=== PATIENT | male | born 1950 | race Caucasian/White ===

== ENCOUNTER 2021-09-09 17:41 | Emergency (ER) | payer OTHER ==
[2021-09-09] MEDS ORDERED: Lorazepam 2 MG/ML VIAL ONE (18:42)
[2021-09-09] MEDS ORDERED: levETIRAcetam in NS 100 ML ONE (18:42)
[2021-09-09 18:55] LABS: #Basophils 0.1 10x3/uL (0.0-0.2); #Eosinphils 0.1 10x3/uL (0.0-0.5); #Monocytes 0.6 10x3/uL (0.0-1.1); #Neutrophils 8.1 10x3/uL (1.5-8.4); %Basophils 0.6 % (0.0-2.0); %Eosinophils 0.5 % (0.0-6.0); %Lymphocytes 11.5 % (18.0-47.0); %Monocytes 5.7 % (0.0-10.0); %Neutrophils 81.2 % (40.0-75.0); Hemoglobin 13.6 g/dL (13.5-17.5); Mean Corpuscular HGB CONC 33.6 g/dL (32.0-36.0); Mean Corpuscular Hemoglobin 29.1 pg (27.0-33.0); Mean Corpuscular Volume 86.7 fl (81.2-95.1); Mean Platelet Volume 9.5 fl (7.4-10.4); Platelet Count 258 10x3/uL (150-450); RBC Distribution Width 14.3 % (11.5-14.5); Red Blood Cell (RBC) Count 4.67 10x6/uL (4.32-5.72); White Blood Cell (WBC) Count 9.9 10x3/uL (3.5-10.5)
[2021-09-09 19:07] LABS: ALT (SGPT) 14 U/L (8-55); AST (SGOT) 16 U/L (5-34); Alkaline Phosphatase 79 U/L (40-110); Anion Gap 14 mmol/L (10-20); BUN (Urea Nitrogen) 10 mg/dL (8.4-25.7); Bilirubin, Total 0.4 mg/dL (0.2-1.2); CK (CPK) 66 U/L (30-200); Calc. Creatinine Clearance 0 mL/min (70-130); Calcium 8.7 mg/dL (7.8-10.44); Carbon Dioxide 19 mmol/L (23-31); Chloride 102 mmol/L (98-107); Globulin 2.5 g/dL (2.4-3.5); Glucose 96 mg/dL (80-115); Protein, Total 6.5 g/dL (5.8-8.1); Sodium 131 mmol/L (136-145)
[2021-09-09] MEDS ORDERED: Dexamethasone 10 MG/ML VIAL ONE (19:47)
[2021-09-09 20:13] LABS: Bilirubin Neg (Negative); Blood, Urine 10 (Negative); Clarity Slightly Cloudy (Clear); Glucose, Urine (Dipstick) Normal (Negative); Ketone, Urine Negative (Negative); Leukocyte 25 (Negative); Nitrite Positive (Negative); Protein, Urine (Dipstick) Negative (Neg-Trace); Urobilinogen Normal mg/dL (Less than 2)
[2021-09-09 20:27] LABS: Squamous Epithelial 0-3 HPF (0-3)
[2021-09-09 20:28] LABS: Bacteria/HPF 4+ HPF (None Seen); Mucous/LPF 2+ LPF (<2+); RBC/HPF 0-3 HPF (0-3); Triple Phosphate Crystal 1+ HPF (None Seen); WBC/HPF 0-3 HPF (0-3)
[2021-09-10] MEDS ORDERED: Dexamethasone 4 mg/ml Vial ONE ×3 (01:13→14:14)
[2021-09-10] MEDS ORDERED: levETIRAcetam 500 MG TAB ONE ×2 (05:27→17:36)
[2021-09-10] MEDS ORDERED: traZODone HCl 50 MG TAB ONE (14:34)
== END 2021-09-09 21:16 | disposition admitted as inpatient to this hospital (09) ==
LOC: CSHERS 17:41
DX: G93.9 Disorder of brain, unspecified (principal); R56.9 Unspecified convulsions; I10 Essential (primary) hypertension; E78.5 Hyperlipidemia, unspecified; F17.210 Nicotine dependence, cigarettes, uncomplicated; Z79.82 Long term (current) use of aspirin; Z79.899 Other long term (current) drug therapy
CPT/HCPCS: 70450; 80053; 81003; 81015; 82550; 85025; 96374; 96375; 96376; J1100; J1953; J2060

== ENCOUNTER 2022-02-27 22:49 | Emergency (ER) | payer OTHER ==
[2022-02-27] MEDS ORDERED: Ondansetron PF 4 MG/2 ML Vial ONE (23:25)
[2022-02-28 00:28] LABS: Bilirubin Neg (Negative); Blood, Urine 10 (Negative); Clarity Cloudy (Clear); Glucose, Urine (Dipstick) Normal (Negative); Ketone, Urine Negative (Negative); Leukocyte 500 (Negative); Nitrite Positive (Negative); Protein, Urine (Dipstick) 15 mg/dl (Neg-Trace); Specific Gravity, Urine 1.015 (1.002-1.036); Urobilinogen Normal mg/dL (Less than 2)
[2022-02-28 00:40] LABS: RBC/HPF 0-3 HPF (0-3)
[2022-02-28 00:42] LABS: Bacteria/HPF 2+ HPF (None Seen); Mucous/LPF 1+ LPF (<2+); Squamous Epithelial 0-3 HPF (0-3); Triple Phosphate Crystal 2+ HPF (None Seen)
[2022-02-28 00:43] LABS: ALT (SGPT) 29 U/L (8-55); AST (SGOT) 25 U/L (5-34); Alkaline Phosphatase 92 U/L (40-110); Anion Gap 15 mmol/L (10-20); BUN (Urea Nitrogen) 11 mg/dL (8.4-25.7); Bilirubin, Total 0.4 mg/dL (0.2-1.2); Calc. Creatinine Clearance 0 mL/min (70-130); Calcium 9.5 mg/dL (7.8-10.44); Carbon Dioxide 21 mmol/L (23-31); Chloride 98 mmol/L (98-107); Globulin 2.2 g/dL (2.4-3.5); Glucose 146 mg/dL (83-110); Lipase 27 U/L (8-78); Potassium 4.1 mmol/L (3.5-5.1); Protein, Total 6.2 g/dL (5.8-8.1); Sodium 130 mmol/L (136-145)
[2022-02-28] MEDS ORDERED: cefTRIAXone\\ROCEPHIN 1 GM VIAL ONE (01:00)
[2022-02-28 01:01] LABS: #Eosinphils 0.1 10x3/uL (0.0-0.5); #Monocytes 0.4 10x3/uL (0.0-1.1); #Neutrophils 8.5 10x3/uL (1.5-8.4); %Basophils 0.4 % (0.0-2.0); %Eosinophils 0.8 % (0.0-6.0); %Lymphocytes 2.9 % (18.0-47.0); %Monocytes 3.8 % (0.0-10.0); %Neutrophils 91.8 % (40.0-75.0); Mean Corpuscular Hemoglobin 29.7 pg (27.0-33.0); Mean Corpuscular Volume 84.9 fl (81.2-95.1); Mean Platelet Volume 10.1 fl (7.4-10.4); Platelet Count 221 10x3/uL (150-450); RBC Distribution Width 14.3 % (11.5-14.5); Red Blood Cell (RBC) Count 4.37 10x6/uL (4.32-5.72); White Blood Cell (WBC) Count 9.3 10x3/uL (3.5-10.5)
== END 2022-02-28 01:56 | disposition home or self-care (01) ==
LOC: CSHERS 22:49
DX: N39.0 Urinary tract infection, site not specified (principal); C71.9 Malignant neoplasm of brain, unspecified; R11.2 Nausea with vomiting, unspecified; R55 Syncope and collapse; I10 Essential (primary) hypertension; E78.5 Hyperlipidemia, unspecified; F17.210 Nicotine dependence, cigarettes, uncomplicated; Z79.899 Other long term (current) drug therapy; Z79.82 Long term (current) use of aspirin
CPT/HCPCS: 71045; 80053; 81003; 81015; 83690; 84484; 85025; 93005; 96361; 96374; 96375; J0696; J2405

== ENCOUNTER 2022-05-05 09:11 | Outpatient (CLI) | payer OTHER ==
[2022-05-05] MEDS ORDERED: Magnevist 469MG/ML 20 ML VIAL ONE (15:50)
== END 2022-05-05 09:12 | disposition home or self-care (01) ==
LOC: CSHMRI 09:11
PROVIDERS: ATTEND Radiology Radiation Oncology
DX: C71.9 Malignant neoplasm of brain, unspecified (principal); Z98.890 Other specified postprocedural states; Z92.3 Personal history of irradiation; Z92.21 Personal history of antineoplastic chemotherapy; C71.0 Malignant neoplasm of cerebrum, except lobes and ventricles
CPT/HCPCS: 70553; A9579

== ENCOUNTER 2022-05-09 15:24 | Emergency (ER) | payer OTHER, MEDICARE ==
[~2022-05-09 15:24] MED LIST: Iopamidol 370 76% 100 ML VIAL ONE
[2022-05-09 16:04] LABS: #Monocytes 0.3 10x3/uL (0.0-1.1); #Neutrophils 5.8 10x3/uL (1.5-8.4); %Basophils 0.2 % (0.0-2.0); %Eosinophils 0.3 % (0.0-6.0); %Lymphocytes 3.8 % (18.0-47.0); %Monocytes 5.2 % (0.0-10.0); %Neutrophils 90.2 % (40.0-75.0); Hemoglobin 13.2 g/dL (13.5-17.5); Mean Corpuscular HGB CONC 35.7 g/dL (32.0-36.0); Mean Corpuscular Hemoglobin 31.8 pg (27.0-33.0); Mean Corpuscular Volume 89.2 fl (81.2-95.1); Mean Platelet Volume 10.3 fl (7.4-10.4); Platelet Count 157 10x3/uL (150-450); RBC Distribution Width 17.2 % (11.5-14.5); Red Blood Cell (RBC) Count 4.15 10x6/uL (4.32-5.72); White Blood Cell (WBC) Count 6.4 10x3/uL (3.5-10.5)
[2022-05-09 16:17] LABS: Bilirubin Neg (Negative); Blood, Urine 50 (Negative); Clarity Cloudy (Clear); Glucose, Urine (Dipstick) Normal (Negative); Ketone, Urine Negative (Negative); Leukocyte 500 (Negative); Nitrite Positive (Negative); Protein, Urine (Dipstick) 100 mg/dl (Neg-Trace); Specific Gravity, Urine 1.015 (1.002-1.036); Urobilinogen Normal mg/dL (Less than 2)
[2022-05-09 16:19] LABS: ALT (SGPT) 25 U/L (8-55); AST (SGOT) 21 U/L (5-34); Albumin 4.3 g/dL (3.4-4.8); Alkaline Phosphatase 76 U/L (40-110); Anion Gap 13 mmol/L (10-20); BUN (Urea Nitrogen) 12 mg/dL (8.4-25.7); Bilirubin, Total 0.5 mg/dL (0.2-1.2); CK (CPK) 33 U/L (30-200); Calc. Creatinine Clearance 0 mL/min (70-130); Calcium 9.8 mg/dL (7.8-10.44); Carbon Dioxide 22 mmol/L (23-31); Chloride 100 mmol/L (98-107); Estimated GFR 66; Globulin 2.2 g/dL (2.4-3.5); Glucose 137 mg/dL (83-110); Protein, Total 6.5 g/dL (5.8-8.1); Sodium 131 mmol/L (136-145)
[2022-05-09 16:39] LABS: Bacteria/HPF 4+ HPF (None Seen); RBC/HPF 0-3 HPF (0-3); Squamous Epithelial 0-3 HPF (0-3)
[2022-05-09 16:40] LABS: Triple Phosphate Crystal 1+ HPF (None Seen)
[2022-05-09] MEDS ORDERED: cefTRIAXone\\ROCEPHIN 1 GM VIAL ONE (16:52)
[2022-05-09 17:06] LABS: PTT 25.6 sec (22.0-33.0); Prothrombin Time 10.6 sec (9.5-12.1)
[2022-05-09 18:52] LABS: SARS-CoV-2 NAA Rapid Test Not Detected (NotDetected)
[2022-05-09] MEDS ORDERED: Aspirin Chewable 81 MG TAB ONE (19:43)
[2022-05-09 21:19] LABS: Lactic Acid 1.8 mmol/L (0.5-2.2)
== END 2022-05-09 23:38 | disposition short-term general hospital (02) ==
LOC: CSHERS 15:24
DX: C71.9 Malignant neoplasm of brain, unspecified (principal); E78.5 Hyperlipidemia, unspecified; I10 Essential (primary) hypertension; F17.210 Nicotine dependence, cigarettes, uncomplicated; Z79.899 Other long term (current) drug therapy
CPT/HCPCS: 36415; 70450; 71045; 71275; 80053; 81003; 81015; 82550; 83605; 84484; 85025; 85610; 85730; 87040; 87077; 87086; 87149; 93005; 96365; J0696; Q9967; U0002

== ENCOUNTER 2022-05-31 09:51 | Outpatient (CLI) | payer OTHER ==
[~2022-05-31 09:51] MED LIST changes: -Iopamidol 370 76% 100 ML VIAL ONE; +Magnevist 469MG/ML 20 ML VIAL ONE
== END 2022-05-31 09:52 | disposition home or self-care (01) ==
LOC: CSHMRI 09:51
PROVIDERS: ATTEND Neurological Surgery
DX: C71.9 Malignant neoplasm of brain, unspecified (principal); G93.6 Cerebral edema
CPT/HCPCS: 70553; A9579

== ENCOUNTER 2022-08-05 14:34 | Outpatient (CLI) | payer OTHER | END 2022-08-05 14:35 | disposition home or self-care (01) | LOC: CSHMRI 14:34 | PROVIDERS: ATTEND Internal Medicine Hematology & Oncology | DX: C71.9 Malignant neoplasm of brain, unspecified (principal); C71.0 Malignant neoplasm of cerebrum, except lobes and ventricles; G93.6 Cerebral edema | CPT/HCPCS: 70553 ==

== ENCOUNTER 2022-09-27 05:37 | Day surgery (SDC) | payer OTHER ==
[2022-09-23 15:20] VITALS: BMI 22.0
[2022-09-27] MEDS ORDERED: Bupivacaine PF 0.5% 30 ML VIAL ONE (06:36)
[2022-09-27] MEDS ORDERED: EPINEPHrine 1 MG/ML AMP ONE (06:36)
[2022-09-27] MEDS ORDERED: CEFAZOLIN 2 GM VIAL ONE (07:01)
[2022-09-27] MEDS ORDERED: Dexamethasone 4 mg/ml Vial ONE (07:06)
[2022-09-27] MEDS ORDERED: Ondansetron PF 4 MG/2 ML Vial ONE (07:06)
[2022-09-27] MEDS ORDERED: PROPOFOL 20 ML ONE (07:06)
[2022-09-27] MEDS ORDERED: Fentanyl 100 MCG/2 ML VIAL ONE (07:06)
[2022-09-27] MEDS ORDERED: Clindamycin/D5W 600 mg/50 ml Premix Bag ONE (07:11)
[2022-09-27] MEDS ORDERED: PHENYLEPHRINE-NS 100 MCG/ML 10 ML SYRINGE ONE (07:31)
[2022-09-27] MEDS ORDERED: HYDROcodone/Acetaminophen 5/325 mg Tablet PO PRN (08:14)
[2022-09-27] MEDS ORDERED: Acetaminophen 325 MG TAB PO PRN (08:14)
== END 2022-09-27 09:00 | disposition home or self-care (01) ==
LOC: CSHSDC 05:37
PROVIDERS: ATTEND Surgery
PROC: 02HV33Z Insertion of Infusion Device into Superior Vena Cava, Percutaneous Approach (ICD-10-PCS; principal; 2022-09-27)
PROC: B518ZZA Fluoroscopy of Superior Vena Cava, Guidance (ICD-10-PCS; principal; 2022-09-27)
DX: C71.9 Malignant neoplasm of brain, unspecified (principal); R29.898 Other symptoms and signs involving the musculoskeletal system; I10 Essential (primary) hypertension; E78.00 Pure hypercholesterolemia, unspecified; Z85.51 Personal history of malignant neoplasm of bladder; Z79.899 Other long term (current) drug therapy; Z88.8 Allergy status to other drugs, medicaments and biological substances; Z87.891 Personal history of nicotine dependence; Z98.890 Other specified postprocedural states
CPT/HCPCS: 71045; C1788; J0171; J1100; J1642; J2405; J2704; J3010; J3490; S0020

== ENCOUNTER 2022-10-13 11:32 | Emergency (ER) | payer OTHER ==
[2022-10-13 12:26] LABS: Bilirubin Neg (Negative); Blood, Urine 50 (Negative); Clarity Cloudy (Clear); Glucose, Urine (Dipstick) Normal (Negative); Ketone, Urine 5 mg/dL (Negative); Leukocyte 500 (Negative); Nitrite Positive (Negative); Protein, Urine (Dipstick) 100 mg/dl (Neg-Trace); Urobilinogen Normal mg/dL (Less than 2)
[2022-10-13 12:36] LABS: Bacteria/HPF 1+ HPF (None Seen); RBC/HPF 0-3 HPF (0-3)
[2022-10-13] MEDS ORDERED: Cefepime 2 GM VIAL ONE (12:57)
[2022-10-13 13:31] LABS: #Monocytes 0.6 10x3/uL (0.0-1.1); #Neutrophils 6.7 10x3/uL (1.5-8.4); %Basophils 0.3 % (0.0-2.0); %Eosinophils 0.5 % (0.0-6.0); %Lymphocytes 5.2 % (18.0-47.0); %Monocytes 7.5 % (0.0-10.0); Hemoglobin 13.9 g/dL (13.5-17.5); Mean Corpuscular HGB CONC 33.7 g/dL (32.0-36.0); Mean Corpuscular Hemoglobin 31.9 pg (27.0-33.0); Mean Corpuscular Volume 94.5 fl (81.2-95.1); Mean Platelet Volume 10.2 fl (7.4-10.4); Platelet Count 204 10x3/uL (150-450); RBC Distribution Width 14.8 % (11.5-14.5); Red Blood Cell (RBC) Count 4.36 10x6/uL (4.32-5.72); White Blood Cell (WBC) Count 7.8 10x3/uL (3.5-10.5)
[2022-10-13 13:42] LABS: ALT (SGPT) 28 U/L (8-55); AST (SGOT) 33 U/L (5-34); Acetaminophen Less than 10.0 mcg/mL (10.0-30.0); Albumin 4.2 g/dL (3.4-4.8); Alcohol Less than 10 mg/dL (Less than 10); Alkaline Phosphatase 104 U/L (40-110); Anion Gap 15 mmol/L (10-20); BUN (Urea Nitrogen) 11 mg/dL (8.4-25.7); Bilirubin, Total 0.3 mg/dL (0.2-1.2); Calc. Creatinine Clearance 0 mL/min (70-130); Calcium 9.8 mg/dL (7.8-10.44); Carbon Dioxide 20 mmol/L (23-31); Chloride 102 mmol/L (98-107); Estimated GFR 78; Globulin 2.8 g/dL (2.4-3.5); Glucose 123 mg/dL (83-110); Magnesium 1.8 mg/dL (1.6-2.6); Potassium 3.9 mmol/L (3.5-5.1); Salicylate Less than 8.0 mg/dL (15.0-30.0); Sodium 133 mmol/L (136-145)
[2022-10-13] MEDS ORDERED: Lisinopril 10 MG TAB ONE (18:24)
[2022-10-14] MEDS ORDERED: Vancomycin 1 GM VIAL ONE (02:20)
[2022-10-14] MEDS ORDERED: hydrALAZINE 20 MG/ML VIAL ONE (04:57)
[2022-10-14] MEDS ORDERED: Labetalol HCl 100 MG/20 ML VIAL ONE (04:58)
[2022-10-14] MEDS ORDERED: Cefepime 2 GM VIAL ONE (10:03)
== END 2022-10-14 11:15 | disposition short-term general hospital (02) ==
LOC: CSHERS 11:32
DX: R41.82 Altered mental status, unspecified (principal); N39.0 Urinary tract infection, site not specified; I10 Essential (primary) hypertension; E78.5 Hyperlipidemia, unspecified; Z79.82 Long term (current) use of aspirin; Z79.899 Other long term (current) drug therapy
CPT/HCPCS: 36415; 70450; 71045; 80053; 80307; 81003; 81015; 83605; 83735; 84484; 85025; 86850; 86900; 86901; 87040; 87086; 93005; 96361; 96365; 96366; 96375; J0360; J0692; J3370